=== PATIENT | male | born 1995 | race African-American/Black ===

== ENCOUNTER 2023-09-15 14:07 | Emergency (ER) | payer OTHER, SELFPAY ==
[2023-09-15 14:12] VITALS: BP 116/64; PULSE 71; RESP 16; TEMP 36.5; O2SAT 99; BMI 43.5
--- NOTE | 2023-09-15 14:31 | XR_ITS ---
Patient: ALEXX JAY Facility:?[facility] Patient ID:?[id number] Site Patient ID:?[id number]. Site :?[id number] Study:?XRay-Chest 2 VIEWS-09/15/2023 2:43:58 PM Ordering Physician:KAMERON Final Report: Indication: Hemoptysis Technique: PA and lateral views of the chest. Comparison: None. Findings: Low lung volumes. Normal cardiomediastinal silhouette. Mild right basilar opacity. No pleural effusion or visualized pneumothorax. Impression: Mild right basilar opacity may represent atelectasis or developing infection. Dictated by Andreas Osullivan MD @ 09/15/2023 2:46:43 PM Signed by:?Andreas Osullivan MD @09/15/2023 2:46:43 PM (Electronic Signature)
[2023-09-15 14:34] VITALS: RESP 20
--- NOTE | 2023-09-15 14:34 | ED.GENADULT ---
HPI - General Adult General Date Seen: 09/15/23 Chief complaint: Unspecified Complaint, Adult Stated complaint: chest pain, coughing up brown stuff Time Seen by Provider: 09/15/23 14:22 Source: patient Mode of arrival: ambulatory Limitations: no limitations History of Present Illness HPI narrative: Patient is a 28-year-old who says he was at work, kind of felt something in the back of his throat, coughed and says he coughed up what looked sort of mucousy with some brown flecks in it. He says since then he she has been feeling weird, not otherwise specified, and thought he should get checked out. He has otherwise not had a cough, no recent illness. Denies recent nose bleeds or problems with his teeth. No other bleeding complaints. No other episodes of coughing. No chest pain, no fevers, no shortness of breath. He does smoke. Related Data Previous Rx's Medication Instructions Recorded doxycycline hyclate 100 mg capsule 100 mg PO BID #20 caps 09/15/23 Allergies Allergy/AdvReac Type Severity Reaction Status Date / Time No Known Drug Allergies Allergy Verified 09/15/23 14:12 Review of Systems Status of ROS: Reports: 6 or more systems reviewed and unremarkable except as noted in History and below [facility] Social History Smoking Status: Former smoker What tobacco products do you use: cigarettes Smoking packs per day: 3 Smoking cigarettes per day: 60.0 Smoking quit date/years: <= 15 years ago Do you use any of these nicotine containing products: Vaping Products How often do you have a drink containing alcohol: monthly or less AUDIT-C Alcohol total score: 1 Non-prescribed substance use: marijuana (any form) service: No Exam Narrative: Exam Narrative: Vital signs reviewed In general, alert, well-appearing male. Breathing easily. Head: Normocephalic, atraumatic. Eyes: Sclera clear. ENT: Oropharynx and nares appear normal, no evidence of recent bleeding. Neck: Supple, no adenopathy or stridor. Heart: Regular rate and rhythm without murmur. Lungs: Clear, no crackles no wheezes no increased work of breathing. Skin: Warm dry well perfused. Const: Vital Signs, click to edit/add: Vital Signs - 24 hr 09/15/23 14:12 09/15/23 14:34 Temperature 97.7 F Pulse Rate [Pulse Oximeter] 71 Respiratory Rate 16 Respiratory Rate [ Throat] 20 Blood Pressure [Ri ght Upper Arm] 116/64 Pulse Oximetry 99 Oxygen Delivery Me thod Room Air Documenting provider has reviewed patient's vital signs: yes Course Course ED Course: It sounds as if he coughed up a little bit of mucus with some old blood, no bright red blood and really no other symptoms. Will do a chest x-ray to alleviate concerns about possible pulmonary process. Chest x-ray by my review does show a little bit of an infiltrate at the right base, radiology read this as a mild right basilar opacity which may represent atelectasis or developing infection. I have discussed this with the patient. He is well-appearing, does not have any symptoms suggestive of pneumonia right now. I am going to send a prescription for an antibiotic, but he is comfortable waiting a day or 2 to see how he does. If he is feeling more ill, develops fevers, continues to cough, etcetera, he will go ahead and start the antibiotic. Otherwise, return to the ER for severe symptoms such as coughing up bright red blood in any significant amount, significant shortness of breath, etcetera. He has normal O2 sats, no tachycardia, no tachypnea, no chest pain or shortness of breath. I do not think this represents pulmonary embolism. Vital Signs Vital signs: Initial Vital Signs Temperature 97.7 F 09/15/23 14:12 Temperature Source Temporal Artery Scan 09/15/23 14:12 Pulse Rate 71 09/15/23 14:12 Pulse Rhythm Regular 09/15/23 14:12 Respiratory Rate 16 09/15/23 14:12 Blood Pressure 116/64 09/15/23 14:12 Blood Pressure Mean 81 09/15/23 14:12 Blood Pressure Position Sitting 09/15/23 14:12 Pulse Oximetry 99 09/15/23 14:12 Oxygen Delivery Method Room Air 09/15/23 14:12 Vital Signs Temperature 97.7 F 09/15/23 14:12 Pulse Rate 71 09/15/23 14:12 Respiratory Rate 16 09/15/23 14:12 Blood Pressure 116/64 09/15/23 14:12 Pulse Oximetry 99 09/15/23 14:12 Oxygen Delivery Method Room Air 09/15/23 14:12 Temperature 97.7 F 09/15/23 14:12 Pulse Rate 71 09/15/23 14:12 Respiratory Rate 20 09/15/23 14:34 Blood Pressure 116/64 09/15/23 14:12 Pulse Oximetry 99 09/15/23 14:12 Oxygen Delivery Method Room Air 09/15/23 14:12 Discharge Plan Discharge Clinical Impression: Cough Patient Disposition: Home, Self-Care Condition: Stable Instructions: Acute Cough (ED) Additional Instructions: I am sending a prescription for an antibiotic. I would recommend that you hold off on starting that and see how you do over the next day or 2. If you developed a significant cough, fevers, or or otherwise feeling ill, you can start that medication. If you have no further symptoms, I do not think any to take an antibiotic. Return for severe symptoms such as coughing up bright red blood, significant shortness of breath, high fevers despite treatment. See your regular clinic for further concerns. Prescriptions: New doxycycline hyclate 100 mg capsule 100 mg PO BID Qty: 20 0RF Follow Up/Referrals: Provider,Not a Local [Primary Care Provider] - Stand Alone Forms: Your Energy Info Instructions
== END 2023-09-15 15:27 | disposition home or self-care (01) ==
PROVIDERS: Emergency Provider Emergency Medicine
DX: R05.1 Acute cough (principal)
CPT/HCPCS: 71046; 99283; 99284